=== PATIENT | female | born 1965 | race Caucasian/White ===

== ENCOUNTER → 2017-03-17 | Outpatient (CLI) | payer MEDICARE, OTHER ==
--- NOTE | 2017-03-17 10:15 | MM ---
Reason for exam: additional evaluation requested from prior study. Last mammogram was performed 1 year and 2 months ago. History: Benign MG pre op needle loc LT of the left breast, October 15, 2014. Benign MG stereo VAD BX LT of the left breast, October 02, 2014. Physical Findings: Nurse did not find any significant physical abnormalities on exam. MG 3D Diag Mammo W/Cad EDIN Bilateral CC and MLO view(s) were taken. Prior study comparison: January 13, 2016, bilateral MG 3d diag mammo w/cad EDIN. June 23, 2015, left breast MG 3d diag mammo w/cad LT. There are scattered fibroglandular densities. Finding: Architectural distortion in the upper outer quadrant of the left breast consistent with 1mm benign excision in 2014. There is a chronic nodularity in the left breast. There is no discrete abnormality. These results were verbally communicated with the patient and result sheet given to the patient on 03/17/17. ASSESSMENT: Benign, BI-RAD 2 RECOMMENDATION: Routine screening mammogram of both breasts in 1 year.
== END | disposition home or self-care (01) ==
LOC: RADMAMWWP 08:32
PROVIDERS: ATTEND Surgery
DX: R92.8 Other abnormal and inconclusive findings on diagnostic imaging of breast (principal)
CPT/HCPCS: G0204; G0279

== ENCOUNTER → 2019-06-06 | Outpatient (CLI) | payer MEDICARE ==
--- NOTE | 2019-06-07 14:57 | MM ---
Reason for exam: screening (asymptomatic). Last mammogram was performed 2 years and 3 months ago. History: Benign MG pre op needle loc LT of the left breast, October 15, 2014. Benign MG stereo VAD BX LT of the left breast, October 02, 2014. Physical Findings: A clinical breast exam by your physician is recommended on an annual basis and results should be correlated with mammographic findings. MG 3D Screening Mammo W/Cad Bilateral CC and MLO view(s) were taken. Prior study comparison: March 17, 2017, bilateral MG 3d diag mammo w/cad EDIN. January 13, 2016, bilateral MG 3d diag mammo w/cad EDIN. There are scattered fibroglandular densities. There is a new 6mm right upper outer quadrant mass 7-8cm from nipple. No suspicious abnormality on the left breast. Post excisional change on the left. ASSESSMENT: Incomplete: need additional imaging evaluation, BI-RAD 0 RECOMMENDATION: Ultrasound of the right breast. [facility] will attempt to contact patient to return for ultrasound.
== END ==
LOC: RADMAMWWP 09:36
PROVIDERS: ATTEND Family Medicine
DX: Z12.31 Encounter for screening mammogram for malignant neoplasm of breast (principal)
CPT/HCPCS: 77063; 77067

== ENCOUNTER → 2019-06-20 | Outpatient (CLI) | payer MEDICARE ==
--- NOTE | 2019-06-20 08:34 | USB ---
Reason for exam: additional evaluation requested from abnormal screening. History: Benign MG pre op needle loc LT of the left breast, October 15, 2014. Benign MG stereo VAD BX LT of the left breast, October 02, 2014. Physical Findings: Nurse did not find any significant physical abnormalities on exam. US Breast Workup Limited RT Right limited breast ultrasound including focal area of concern, retroareolar and axilla demonstrates a 0.9 x 0.4 x 0.6cm oval, taller than wide, irregular, cystic cluster at 9 o'clock, corresponds to the new mammographic finding, 6 month follow up due to some irregular margins, if growth biopsy would be recommended and a 1.2 x 1.4 x 0.4cm oval axilla node. These results were verbally communicated with the patient and result sheet given to the patient on 06/20/19. ASSESSMENT: Probably benign, BI-RAD 3 RECOMMENDATION: Ultrasound of the right breast in 6 months.
== END | disposition home or self-care (01) ==
LOC: RADUSWWP 06:59
PROVIDERS: ATTEND Family Medicine
DX: R92.8 Other abnormal and inconclusive findings on diagnostic imaging of breast (principal)

== ENCOUNTER → 2019-12-25 | Outpatient (CLI) | payer MEDICARE ==
--- NOTE | 2019-12-26 07:46 | USB ---
Reason for exam: clinical finding. History: Benign MG pre op needle loc LT of the left breast, October 15, 2014. Benign MG stereo VAD BX LT of the left breast, October 02, 2014. Indicated problem(s): lump or thickening in the right breast. Physical Findings: Nurse did not find any significant physical abnormalities on exam. US Breast Limited RT Right limited breast ultrasound including focal area of concern, retroareolar and axilla demonstrates a 7 x 4 x 6mm cystic cluster at 9 o'clock, well defined posterior wall, slightly smaller than prior, prior measured 9 x 6 x 4mm. These results were verbally communicated with the patient and result sheet given to the patient on 12/25/19. ASSESSMENT: Benign, BI-RAD 2 RECOMMENDATION: Return to routine screening mammogram schedule for both breasts.
== END | disposition home or self-care (01) ==
LOC: RADUSWWP 08:53
PROVIDERS: ATTEND Family Medicine
DX: N63.10 Unspecified lump in the right breast, unspecified quadrant (principal); Z85.3 Personal history of malignant neoplasm of breast

== ENCOUNTER → 2021-10-01 | Outpatient (CLI) | payer MEDICARE ==
--- NOTE | 2021-10-01 16:25 | US ---
EXAMINATION TYPE: US thyroid st tissue head/neck DATE OF EXAM: 10/01/2021 COMPARISON: NONE CLINICAL HISTORY: 56-year-old female E210 PRIMARY HYPERPARATHYROIDISM. Abnormal labs TECHNIQUE: Multiple sonographic images of the thyroid gland are obtained. FINDINGS: GLAND SIZE: Right Lobe: 4.3 x 1.4 x 1.7 cm Overall Parenchyma: homogenous Left Lobe: 4.0 x 1.5 x 1.5 cm Overall Parenchyma: heterogeneous Isthmus Thickness: 0.2 cm NODULES RIGHT: # of nodules measured on right: 0 LEFT: # of nodules measured on left: 1 1. 1.3 X 0.9 x 0.7 cm, posterior mid primarily solid nodule that is wider than talwider than tallma rginssmoothout echogewithouti. Prior size: HIGH LIFT OPERATOR ISTHMUS: # of nodules measured in the isthmus: 0 Bilateral 0eck scanned, no evidence of lymphadenopathy. IMPRESSION: A solitary nodule on the left. This measures 1.3 cm and is located at the midpole posteriorly. A thy roid nodule is favored over a parathyroid adenoma. Consider a sestamibi parathyroid scan with SPECT t o assess for any persistent uptake here.
--- NOTE | 2021-10-01 17:13 | BD ---
EXAMINATION TYPE: Axial Bone Density DATE OF EXAM: 10/01/2021 COMPARISON: NONE CLINICAL HISTORY: 56 YR OLD FEMALE......ICD-10 CODE: E21.0 PRIMARY HYPERPARATHYROIDISM Height: 67 Weight: 271 FRAX RISK QUESTIONS: Glucocorticoids (More than 3mos): YES (Ex: prednisone, prednisolone, methylprednisolone, dexamethasone, and hydrocortisone). RISK FACTORS HISTORY OF: Postmenopausal woman: YES, AT AGE 53 YRS OLD, ABLATION IN 2006 Hyperparathyroidism: YES Adrenal Insufficiency: NO MEDICATIONS: Prednisone or other steroids: YES, ASTHMA FOR ABOUT 15 YRS Additional Medications: BP MEDS, PAXIL, LEXAPRO, CHOLESTEROL MEDS, LIPITOR, VIT D Additional History: BILAT TKRs, ARTHRITIS, HYPERCALCEMIA, HYPERTENSION, ANXIETY/DEPRESSION, CHOLESTE ROL, HYPERPARATHYROIDISM. EXAM MEASUREMENTS: Bone mineral densitometry was performed using the besomebody. System. Bone mineral density as measured about the Lumbar spine is: ----- L1-L4(G/cm2): 1.518 T Score Values are as follows: ----- L1: 2.3 ----- L2: 5.2 ----- L3: 2.6 ----- L4: 1.6 ----- L1-L4: 2.8 Bone mineral density FIRST DEXA SCAN.......BASELINE STUDY Bone mineral density about the R hip (g/cm2): 1.228 Bone mineral density about the L hip (g/cm2): 1.222 T Score values are as follows: -----R Neck: 1.1 -----L Neck: 0.6 -----R Total: 1.8 -----L Total: 1.7 Bone mineral density BASELINE STUDY FRAX%s: THERE IS A 7.6% CHANCE FOR A MAJOR OSTEOPOROTIC FX AND A 0.1% FOR HER HIPS.....PROBABILITY FOR HIP FX IN 10 YRS TIME IMPRESSION: Normal (Values between +1 and -1 indicate normal bone mass). Consider repeating this study in 5 year s or sooner if there is some new clinical indication. NOTE: T-SCORE=SD OF THE YOUNG ADULT MEAN.
[2021-10-02 00:20] LABS: African American GFR (CKD) 72.4 (60.0-200.0); Albumin 4.5 g/dL (3.8-4.9); Albumin/Globulin Ratio 1.72 (1.60-3.17); Anion Gap 13.9 mmol/L (10.00-18.00); BUN/Creat Ratio 15.48 Ratio (12.00-20.00); Blood Urea Nitrogen 15.4 mg/dL (9.0-27.0); Calcium 10.6 mg/dL (8.7-10.3); Globulin 2.6 g/dL (1.6-3.3); Non-African American GFR(CKD) 62.4 (60.0-200.0); Potassium 4.1 mmol/L (3.5-5.5); Total Bilirubin 0.3 mg/dL (0.30-1.20); Total Protein 7.1 g/dL (6.2-8.2)
== END | disposition home or self-care (01) ==
LOC: RADUSWWP 12:53
PROVIDERS: ATTEND Internal Medicine Endocrinology, Diabetes & Metabolism
DX: E21.0 Primary hyperparathyroidism (principal); E04.1 Nontoxic single thyroid nodule
CPT/HCPCS: 76536; 77080; 80053; 82306; 83970

== ENCOUNTER → 2021-12-01 | Outpatient (CLI) | payer MEDICARE ==
--- NOTE | 2021-12-01 18:24 | XR ---
EXAMINATION TYPE: XR chest 2V DATE OF EXAM: 12/01/2021 COMPARISON: X-ray dated 11/26/2021 HISTORY: Bronchopneumonia TECHNIQUE: Frontal and lateral views of the chest are obtained. FINDINGS: Interval resolution of the previously seen opacities in the right upper lung zone. Grossly unremarkab le lungs otherwise. No pleural effusion or pneumothorax. No gross cardiomegaly. No gross aggressive bone lesion. Lower ce rvical anterior spinal fixation. IMPRESSION: Interval resolution of the previously seen right upper lung zone patchy opacities as described above.
== END | disposition home or self-care (01) ==
LOC: RADXRMAIN 11:02
PROVIDERS: ATTEND Physician Assistant
DX: J18.0 Bronchopneumonia, unspecified organism (principal)
CPT/HCPCS: 71046

== ENCOUNTER → 2022-05-28 | Outpatient (CLI) | payer MEDICARE ==
--- NOTE | 2022-05-31 08:31 | MM ---
Reason for Exam: Screening (asymptomatic). Last mammogram was performed 3 year(s) and 0 month(s) ago. Patient History: Menarche at age 11. First Full-Term at age 19. Postmenopausal. 10/15/2014, Benign Core Biopsy on the left side. 10/02/2014, Benign Core Biopsy on the left side. Niece had breast cancer, bilateral, age 33. Risk Values: Zenaida 5 year model risk: 1.9%. NCI Lifetime model risk: 10.0%. Prior Study Comparison: 01/13/2016 Bilateral Diagnostic Mammogram, [facility]. 03/17/2017 Bilateral Diagnostic Mammogram, [facility]. 06/06/2019 Bilateral Screening Mammogram, [facility]. Tissue Density: There are scattered fibroglandular densities. Findings: Analyzed By CAD. Chronic nodularities in the right breast. No suspicious groups of microcalcifications, spiculated or lobular masses, architectural distortion or other secondary signs of malignancy are mammographically apparent.Chronic nodularity is in the right breast. No suspicious groups of microcalcifications, spiculated or lobular masses, architectural distortion or other secondary signs of malignancy are mammographically apparent. Overall Assessment: Benign, BI-RAD 2 Management: Screening Mammogram of both breasts in 1 year. A negative mammogram report should not preclude additional follow up of suspicious palpable abnormalities. Patient should continue monthly self breast exam. A clinical breast exam by your physician is recommended on an annual basis and results should be correlated with mammographic findings. Electronically signed and approved by: Joel Julien D.O. Radiologis
== END | disposition home or self-care (01) ==
LOC: RADMAMWWP 13:48
PROVIDERS: ATTEND Family Medicine
DX: Z12.31 Encounter for screening mammogram for malignant neoplasm of breast (principal)
CPT/HCPCS: 77063; 77067

== ENCOUNTER 2022-12-04 14:56 | Emergency (ER) | payer MEDICARE ==
[2022-12-04 15:10] VITALS: TEMP 97.9
[2022-12-04] MEDS ORDERED: SODIUM CHLORIDE 0.9% 1,000 ML IV STA (15:51)
--- NOTE | 2022-12-04 15:55 | ED ---
Recheck HPI - General Chief Complaint: Recheck/Abnormal Lab/Rx Stated Complaint: abnormal labs-sent by doctor office Source: patient, RN notes reviewed, old records reviewed Mode of arrival: ambulatory Limitations: no limitations - History of Present Illness Initial Comments: This is an-year-old female DF for evaluation patient coming in for multiple complaints weakness occasional symptoms of near-syncope lightheadedness dizziness. Patient stated 3 days of diarrhea and persistent significant. Patient did see primary care for her blood pressure was low yesterday and had la b tests that showed an abnormal creatinine yesterday. Patient did have weight loss that recent plane and states she is has ambulated drink with this illness. No abdominal pain no vomiting no fevers no travel history no other complaints, no 1 else in the house is sick, patient denies blood in the stool MD Complaint: abnormal lab (Abnormal creatinine and outpatient basis), other (Low blood pressure at primary care office) -: days(s) Returns Today for: Called Because of Abnormal Lab/Test Symptoms Since Prior Visit: no new symptoms Context: called for abnormal lab result Associated Symptoms: malaise, nausea Treatments Prior to Arrival: other (0) - Related Data Home Medications Medication Instructions Recorded Confirmed Albuterol Sulfate [Proair Hfa] 0 - 1 puff INHALATION BID 10/10/14 10/15/14 Fluticasone Propion/Salmeterol 1 puff PO BID 10/10/14 10/15/14 [Advair 250-50 Diskus] Gabapentin [Neurontin] 600 mg PO TID 10/10/14 10/10/14 Oxybutynin Chloride [Ditropan XL] 10 mg PO DAILY 10/10/14 10/15/14 PARoxetine [Paxil] 20 mg PO DAILY 10/10/14 10/10/14 Previous Rx's Medication Instructions Recorded Albuterol Sulfate [Ventolin HFA] 1 - 2 puff INHALATION Q6H PRN #1 11/26/21 each Benzonatate [Tessalon Perles] 100 mg PO TID PRN #20 cap 11/26/21 Doxycycline [Vibramycin] 100 mg PO BID 5 Days #10 capsule 11/26/21 predniSONE 50 mg PO DAILY #5 tab 11/26/21 Allergies Allergy/AdvReac Type Severity Reaction Status Date / Time codeine Allergy Unknown Nausea & Verified 12/04/22 15:10 Vomiting, Abdominal Pain Review of Systems ROS Statement: Those systems with pertinent positive or pertinent negative responses have been documented in the HPI. ROS Other: All systems not noted in ROS Statement are negative. Past Medical History Past Medical History: Asthma, Hyperlipidemia, Hypertension, Osteoarthritis (OA) Additional Past Medical History / Comment(s): ARTHRITIS KNEES History of Any Multi-Drug Resistant Organisms: None Reported Past Surgical History: Back Surgery, Section, Cholecystectomy, Joint Replacement, Orthopedic Surgery, Tonsillectomy, Tubal Ligation, Uterine Ablation Additional Past Surgical History / Comment(s): CERVICAL FUSION, LEFT ELBOW SURGERY, EDIN CARPAL TUNNEL , EDIN KNEE ARTHROSCOPY, KNEE REPLACEMENT LEFT X1 AND RIGHT X2. , BREAST BX 10/02/14. Past Anesthesia/Blood Transfusion Reactions: Family History of Problems w/ Anesthesia, Motion Sickness, Postoperative Nausea & Vomiting (PONV) Additional Past Anesthesia/Blood Transfusion Reaction / Comment(s): SISTER= PONV Past Psychological History: Depression Smoking Status: Never smoker Past Alcohol Use History: None Reported Past Drug Use History: None Reported - Past Family History Mother Family Medical History: Cancer Additional Family Medical History / Comment(s): OVARIAN CANCER General Exam Limitations: no limitations General appearance: alert, in no apparent distress Head exam: Present: atraumatic, normocephalic, normal inspection Eye exam: Present: normal appearance, PERRL, EOMI. Absent: scleral icterus, conjunctival injection, periorbital swelling ENT exam: Present: normal exam, mucous membranes moist Neck exam: Present: normal inspection. Absent: tenderness, meningismus, lymphadenopathy Respiratory exam: Present: normal lung sounds bilaterally. Absent: respiratory distress, wheezes, rales, rhonchi, stridor Cardiovascular Exam: Present: regular rate, normal rhythm, normal heart sounds. Absent: systolic murmur, diastolic murmur, rubs, gallop, clicks GI/Abdominal exam: Present: soft, normal bowel sounds. Absent: distended, tenderness, guarding, rebound, rigid Extremities exam: Present: normal inspection, full ROM, normal capillary refill. Absent: tenderness, pedal edema, joint swelling, calf tenderness Back exam: Present: normal inspection Neurological exam: Present: alert, oriented X3, CN II-XII intact Psychiatric exam: Present: normal affect, normal mood Skin exam: Present: warm, dry, intact, normal color. Absent: rash Course Vital Signs 12/04/22 12/04/22 15:07 16:11 Temperature 97.9 F Pulse Rate 104 H 97 Respiratory 20 18 Rate Blood Pressure 150/83 119/73 O2 Sat by Pulse 97 98 Oximetry - Reevaluation(s) Reevaluation #1: 12/04/22 17:15 Medical record is reviewed Reevaluation #2: 12/04/22 17:15 Patient symptoms are improved here in the ER Reevaluation #3: 12/04/22 17:15 Patient informed of results and questions are Reevaluation #4: 12/04/22 17:15 Was pt. sent in by a medical professional or institution? @ -PCP office for low CR and low BP Did you speak to anyone other than the patient for history? @ -no Did you review nursing and triage notes? @ -agree Were old charts reviewed? @ -no Differential Diagnosis? @ -weakness EKG interpreted by me (3pts min.)? @ -no X-rays interpreted by me (1pt min.)? @ -no CT interpreted by me (1pt min.)? @ -no U/S interpreted by me (1pt. min.)? @ -no What testing was considered but not performed? (CT, X-rays, U/S, labs)? Why? @ no What meds were considered but not given? Why? @ -no Did you discuss the management of the patient with other professionals? @ -no Did you reconcile home meds? @ -no Was smoking cessation discussed for >3mins.? @ -no Was critical care preformed (if so, how long)? @ -no Were there social determinants of health that impacted care today? How? (Homelessness, low income, unemployed, alcoholism, drug addiction, transportation, low edu. Level, literacy, decrease access to med. care, group home, rehab)? @ -no Was there de-escalation of care discussed even if they declined? (Discuss DNR or withdrawal of care, Hospice)? @ -no What co-morbidities impacted this encounter? (DM, HTN, Smoking, COPD, CAD, Cancer, CVA, Hep., AIDS, mental health diagnosis, sleep apnea, morbid obesity)? @ -no Was patient admitted / discharged? @ -dc Undiagnosed new problem with uncertain prognosis? @ -no Drug Therapy requiring intensive monitoring for toxicity (Heparin, Nitro, Insulin, Cardizem)? @ -no Were any procedures done? @ -no Diagnosis/symptom? @ -diarrhea Acute, or Chronic, or Acute on Chronic? @ -acute Uncomplicated (without systemic symptoms) or Complicated (systemic symptoms)? @ -uncomplicated Side effects of treatment? @ -no Exacerbation, Progression, or Severe Exacerbation] @ -no Poses a threat to life or bodily function? @ -no Reevaluation #5: 12/04/22 17:15 Differential Weakness: Hypoglycemia, shock, sepsis, hyponatremia, anemia, infection, MT, ETOH, adverse medicine reaction, overdose, stroke, this is not meant to be an all-inclusive list. Medical Decision Making - Medical Decision Making 57 female to the emergency department for evaluation weakness dehydration lightheadedness, outpatient low blood pressure, elevated creatinine improving, patient's like discharge home given 2 L of IV fluid here in the ER no active vomiting or diarrhea here in the ER patient states she feels well and would like discharged home - Lab Data Result diagrams: 12/04/22 16:05 12/04/22 16:05 Lab Results 12/04/22 12/04/22 12/04/22 Range/Units 16:05 16:05 16:05 WBC 13.3 H (3.8-10.6) k/uL RBC 4.60 (3.80-5.40) m/uL Hgb 13.9 (11.4-16.0) gm/dL Hct 38.6 (34.0-46.0) % MCV 83.8 (80.0-100.0) fL MCH 30.2 (25.0-35.0) pg MCHC 36.0 (31.0-37.0) g/dL RDW 13.9 (11.5-15.5) % Plt Count 363 (150-450) k/uL MPV 8.0 Neutrophils % 75 % Lymphocytes % 16 % Monocytes % 5 % Eosinophils % 2 % Basophils % 0 % Neutrophils # 10.0 H (1.3-7.7) k/uL Lymphocytes # 2.1 (1.0-4.8) k/uL Monocytes # 0.6 (0-1.0) k/uL Eosinophils # 0.3 (0-0.7) k/uL Basophils # 0.0 (0-0.2) k/uL Hyperchromasia Slight Sodium 131 L (137-145) mmol/L Potassium 3.6 (3.5-5.1) mmol/L Chloride 98 (98-107) mmol/L Carbon Dioxide 18 L (22-30) mmol/L Anion Gap 15 mmol/L BUN 43 H (7-17) mg/dL Creatinine 2.66 H (0.52-1.04) mg/dL Est GFR (CKD-EPI)AfAm 22 (>60 ml/min/1.73 sqM) Est GFR (CKD-EPI)NonAf 19 (>60 ml/min/1.73 sqM) Glucose 105 H (74-99) mg/dL Calcium 9.3 (8.4-10.2) mg/dL Phosphorus 3.2 (2.5-4.5) mg/dL Magnesium 1.5 L (1.6-2.3) mg/dL Total Bilirubin 0.7 (0.2-1.3) mg/dL AST 22 (14-36) U/L ALT 27 (4-34) U/L Alkaline Phosphatase 121 (38-126) U/L Total Protein 8.2 (6.3-8.2) g/dL Albumin 4.9 (3.5-5.0) g/dL Urine Color Light Yellow Urine Appearance Clear (Clear) Urine pH 5.5 (5.0-8.0) Ur Specific [place] 1.011 (1.001-1.035) Urine Protein Trace H (Negative) Urine Glucose (UA) Negative (Negative) Urine Ketones Negative (Negative) Urine Blood Negative (Negative) Urine Nitrite Negative (Negative) Urine Bilirubin Negative (Negative) Urine Urobilinogen <2.0 (<2.0) mg/dL Ur Leukocyte Esterase Negative (Negative) Disposition Clinical Impression: Gastroenteritis, Dehydration, Elevated creatine kinase, Near syncope, Diarrhea Disposition: HOME SELF-CARE Condition: Good Instructions (If sedation given, give patient instructions): Dehydration (ED), Acute Diarrhea (ED) Is patient prescribed a controlled substance at d/c from ED?: No Referrals: Hilario Dos Santos DO [Primary Care Provider] - 1-2 days Time of Disposition: 17:20
[2022-12-04 16:26] LABS: Appearance,Urine Clear (Clear); Bilirubin,Urine Negative (Negative); Blood,Urine Negative (Negative); Color,Urine Light Yellow; Glucose,Urine (UA) Negative (Negative); Ketones,Urine Negative (Negative); Leukocyte Esterase,Urine Negative (Negative); Nitrite,Urine Negative (Negative); PH, Urine 5.5 (5.0-8.0); Protein,Urine Trace (Negative); Specific Gravity,Urine 1.011 (1.001-1.035); Urobilinogen,Urine <2.0 mg/dL (<2.0)
[2022-12-04 16:32] LABS: Albumin 4.9 g/dL (3.5-5.0); Calcium 9.3 mg/dL (8.4-10.2); Magnesium 1.5 mg/dL (1.6-2.3); Phosphorus 3.2 mg/dL (2.5-4.5); Potassium 3.6 mmol/L (3.5-5.1); Total Bilirubin 0.7 mg/dL (0.2-1.3); Total Protein 8.2 g/dL (6.3-8.2)
[2022-12-04 16:38] LABS: Basophils % (A) 0 %; Eosinophils # (A) 0.3 k/uL (0-0.7); Eosinophils % (A) 2 %; HCT 38.6 % (34.0-46.0); HGB 13.9 gm/dL (11.4-16.0); Hyperchromasia Slight; Lymphocytes # (A) 2.1 k/uL (1.0-4.8); Lymphocytes % (A) 16 %; MCH 30.2 pg (25.0-35.0); MCV 83.8 fL (80.0-100.0); Monocytes # (A) 0.6 k/uL (0-1.0); Monocytes % (A) 5 %; Neutrophils % (A) 75 %; Platelet Count 363 k/uL (150-450); RDW 13.9 % (11.5-15.5); WBC 13.3 k/uL (3.8-10.6)
[2022-12-04] MEDS ORDERED: SODIUM CHLORIDE 0.9% 1,000 ML IV ONE (17:00)
[2022-12-04 18:22] VITALS: BP 143/91; PULSE 87; RESP 18
== END 2022-12-04 18:23 | disposition home or self-care (01) ==
LOC: EC 14:56
DX: K52.9 Noninfective gastroenteritis and colitis, unspecified (principal); E86.0 Dehydration; E78.5 Hyperlipidemia, unspecified; I10 Essential (primary) hypertension; R55 Syncope and collapse; J45.909 Unspecified asthma, uncomplicated; M19.90 Unspecified osteoarthritis, unspecified site; F32.A Depression, unspecified; Z79.51 Long term (current) use of inhaled steroids; Z79.899 Other long term (current) drug therapy; Z90.49 Acquired absence of other specified parts of digestive tract; Z88.8 Allergy status to other drugs, medicaments and biological substances
CPT/HCPCS: 36415; 80053; 81003; 83735; 84100; 85025; 96360; 96361; 99283

== ENCOUNTER → 2023-08-03 | Outpatient (CLI) | payer MEDICARE ==
--- NOTE | 2023-08-04 08:30 | MM ---
Reason for Exam: Screening (asymptomatic). Last mammogram was performed 1 year(s) and 2 month(s) ago. Patient History: Menarche at age 11. First Full-Term at age 19. Postmenopausal. 10/15/2014, Benign Core Biopsy on the left side. 10/02/2014, Benign Core Biopsy on the left side. Niece had breast cancer, bilateral, age 33. Risk Values: Zenaida 5 year model risk: 1.9%. NCI Lifetime model risk: 9.7%. Prior Study Comparison: 03/17/2017 Bilateral Diagnostic Mammogram, [facility]. 06/06/2019 Bilateral Screening Mammogram, [facility]. 05/28/2022 Bilateral MG 3D screening mammo w/cad, [facility]. Tissue Density: There are scattered fibroglandular densities. Findings: Analyzed By CAD. There is no suspicious group of microcalcifications or new suspicious mass in either breast. Overall Assessment: Negative, BI-RAD 1 Management: Screening Mammogram of both breasts in 1 year. . Patient should continue monthly self-breast exams. A clinical breast exam by your physician is recommended on an annual basis. This exam should not preclude additional follow-up of suspicious palpable abnormalities. Note on Zenaida scores and lifetime risk: 1. A Zenaida score greater than 3% is considered moderate risk. If this is the case, consider specialist referral to assess eligibility for a risk reducing agent. 2. If overall lifetime risk for the development of breast cancer is 20% or higher, the patient may qualify for future screening with alternating mammogram and breast MRI. Electronically signed and approved by: Gordo Acosta M.D. Radiologis
== END | disposition home or self-care (01) ==
LOC: RADMAMWWP 13:44
PROVIDERS: ATTEND Family Medicine
DX: Z12.31 Encounter for screening mammogram for malignant neoplasm of breast (principal); Z78.0 Asymptomatic menopausal state
CPT/HCPCS: 77063; 77067

== ENCOUNTER → 2023-10-18 | Outpatient (CLI) | payer MEDICARE ==
--- NOTE | 2023-10-18 13:19 | CT ---
EXAMINATION TYPE: CT chest wo con DATE OF EXAM: 10/18/2023 COMPARISON: None HISTORY: cough, recent pneumonia history of asthma CT DLP: 778 mGycm, Automated exposure control for dose reduction was used. CONTRAST: Performed injected with 0 mL of Isovue 300. TECHNIQUE: Axial images were obtained at 5 mm thick sections. Reconstructed images are reviewed on [employer] computer in the coronal plane. FINDINGS: Portion of the thyroid visualized is normal. No suspicious lung nodules or focal infiltrates are present. Some minimal atelectasis may be at the d iaphragms. No enlarged mediastinal or hilar adenopathy is evident. The ascending aorta diameter at the level o f the main pulmonary artery is 3.3 cm. The main pulmonary artery diameter at the bifurcation is 20.1 cm. A small pericardial effusion is present. Limited CT sections are obtained through the upper abdomen. Ascites is present. IMPRESSION: 1. There may be minimal atelectasis at the lung bases. Lung oh otherwise appear clear. 2. Small pericardial effusion. 3. Prominent ascites present. Additional workup is recommended.
== END | disposition home or self-care (01) ==
LOC: RADCTMAIN 11:51
PROVIDERS: ATTEND Family Medicine
DX: I31.39 Other pericardial effusion (noninflammatory) (principal); R18.8 Other ascites; M94.0 Chondrocostal junction syndrome [Tietze]
CPT/HCPCS: 71250